=== PATIENT | female | born 2000 | race Two or more races ===

== ENCOUNTER 2019-10-24 02:25 | Inpatient (IN) | payer MEDICAID, OTHER ==
[~2019-10-24] VITALS: Ht 147.3 cm; Wt 54.4 kg
[2019-10-24 06:39] LABS: HEMATOCRIT. 35.4 % (36.0-48.0); HEMOGLOBIN. 12.3 g/dL (12.0-16.0); MEAN CORPUSCULAR HEMOGLOBIN 32.4 pg (28.0-32.0); MEAN CORPUSCULAR VOLUME 93.4 fL (81.0-99.0); MEAN PLATELET VOLUME 9.4 fl (7.4-10.4); PLATELET 259 x1000/uL (130-400); RED BLOOD CELL COUNT 3.79 mill/uL (4.2-5.4); RED CELL DISTRIBUTION WIDTH 13.6 % (11.6-14.6)
[2019-10-24 06:40] LABS: CHLORIDE 108 mEq/L (98-107)
[2019-10-24 07:04] LABS: B-HCG QUANTITATIVE 12114 mIU/mL (<3)
[2019-10-24 08:47] LABS: CLARITY URINE CLOUDY (CLEAR); COLOR URINE YELLOW (YELLOW); KETONES URINE TRACE (NEGATIVE); LEUKOCYTE ESTERASE URINE 1+ (NEGATIVE); NITRITE URINE NEGATIVE (NEGATIVE); OCCULT BLOOD URINE NEGATIVE (NEGATIVE); PH URINE 6.5 (4.5-8.0); PROTEIN URINE NEGATIVE (NEGATIVE); SPECIFIC GRAVITY URINE 1.025 (1.005-1.030)
[2019-10-24] MEDS ORDERED: CEFTRIAXONE 1 G PREMIX 50 ML IV ONE (09:00)
[2019-10-24 09:31] LABS: PLATELET ESTIMATE NORMAL
[2019-10-24] MEDS ORDERED: ACETAMINOPHEN 325MG TABLET PO PRN (14:00)
[2019-10-24] MEDS ORDERED: ACETAMINOPHEN 650MG/20.3ML UDC GT PRN (14:00)
[2019-10-24 16:00] VITALS: BP 96/59
[2019-10-24] MEDS: DEXT 5%/0.45% NACL 1000ML 1,000 ML IV SCH (16:53)
[2019-10-24 17:57] VITALS: BP 96/59
[2019-10-24 20:00] VITALS: BP 99/65
[2019-10-24 21:43] LABS: BASOPHILS % 0.4 % (0.0-2.0); HEMATOCRIT. 33.6 % (36.0-48.0); LYMPHOCYTES % 17.5 % (20.0-50.0); MEAN CORPUSCULAR HEMOGLOBIN 32.8 pg (28.0-32.0); MEAN PLATELET VOLUME 8.7 fl (7.4-10.4); MONOCYTES % 6.4 % (2.0-8.0); NEUTROPHILS % 74.7 % (40.0-76.0); PLATELET 259 x1000/uL (130-400); RED BLOOD CELL COUNT 3.66 mill/uL (4.2-5.4); RED CELL DISTRIBUTION WIDTH 13.7 % (11.6-14.6)
[2019-10-24 21:52] LABS: PARTIAL THROMBOPLASTIN TIME 25.4 sec (23.4-31.0); PROTHROMBIN TIME 10.3 sec (9.6-11.0)
[2019-10-25] VITALS: BP 99/61
[2019-10-25] MEDS: DEXT 5%/0.45% NACL 1000ML 1,000 ML IV SCH ×2 (02:41→12:30)
[2019-10-25 04:00] VITALS: BP 100/59
[2019-10-25 06:49] LABS: BASOPHILS % 0.4 % (0.0-2.0); EOSINOPHILS % 2.1 % (0.0-5.0); HEMATOCRIT. 32.7 % (36.0-48.0); HEMOGLOBIN. 11.5 g/dL (12.0-16.0); LYMPHOCYTES % 23.4 % (20.0-50.0); MEAN CORPUSCULAR VOLUME 93.3 fL (81.0-99.0); MEAN PLATELET VOLUME 8.7 fl (7.4-10.4); MONOCYTES % 5.4 % (2.0-8.0); NEUTROPHILS % 68.7 % (40.0-76.0); PLATELET 248 x1000/uL (130-400); RED CELL DISTRIBUTION WIDTH 13.5 % (11.6-14.6)
[2019-10-25 07:47] LABS: CHLORIDE 111 mEq/L (98-107)
[2019-10-25 08:00] VITALS: BP 99/42
[2019-10-25] MEDS ORDERED: PRENATAL VIT/FE FUMARATE/FA TABLET PO SCH ×2 (09:00)
[2019-10-25] MEDS ORDERED: KCL 20MEQ/100ML PREMIX 100 ML IV NR (11:00)
[2019-10-25 12:00] VITALS: BP 101/57
[2019-10-25 16:00] VITALS: BP 106/60
[2019-10-25 20:00] VITALS: BP 96/54
[2019-10-26] VITALS: BP 97/46
[2019-10-26 04:00] VITALS: BP 94/51
[2019-10-26 06:52] LABS: BASOPHILS % 0.4 % (0.0-2.0); EOSINOPHILS % 2.6 % (0.0-5.0); HEMATOCRIT. 31.5 % (36.0-48.0); HEMOGLOBIN. 11.3 g/dL (12.0-16.0); LYMPHOCYTES % 24.9 % (20.0-50.0); MEAN CORPUSCULAR HEMOGLOBIN 33.5 pg (28.0-32.0); MEAN CORPUSCULAR VOLUME 93.4 fL (81.0-99.0); MEAN PLATELET VOLUME 8.6 fl (7.4-10.4); MONOCYTES % 5.9 % (2.0-8.0); NEUTROPHILS % 66.2 % (40.0-76.0); PLATELET 235 x1000/uL (130-400); RED BLOOD CELL COUNT 3.37 mill/uL (4.2-5.4); RED CELL DISTRIBUTION WIDTH 13.6 % (11.6-14.6)
[2019-10-26 07:08] LABS: CHLORIDE 111 mEq/L (98-107)
[2019-10-26 08:00] VITALS: BP 93/43
[2019-10-26] MEDS: DEXT 5%/0.45% NACL 1000ML 1,000 ML IV SCH (08:51)
[2019-10-26 11:13] VITALS: BP 100/51
== END 2019-10-26 11:50 | disposition home or self-care (01) | DRG 566 ==
LOC: ER 02:25 → 6EST 10:36 → ENRESERV 16:57 → EDBEDREQ 17:13
PROVIDERS: ADMIT Internal Medicine; ATTEND Internal Medicine
DX: O99.612 Diseases of the digestive system complicating pregnancy, second trimester (principal); K80.20 Calculus of gallbladder without cholecystitis without obstruction; D72.829 Elevated white blood cell count, unspecified; O99.282 Endocrine, nutritional and metabolic diseases complicating pregnancy, second trimester; E87.6 Hypokalemia; O23.42 Unspecified infection of urinary tract in pregnancy, second trimester; O99.112 Other diseases of the blood and blood-forming organs and certain disorders involving the immune mechanism complicating pregnancy, second trimester; E78.5 Hyperlipidemia, unspecified; Z3A.17 17 weeks gestation of pregnancy
CPT/HCPCS: 36415; 74181; 76700; 76805; 80053; 80061; 81003; 83036; 84702; 85025; 86592; 86703; 86762; 86850; 86900; 87340; 99285; J0696; J3480

== ENCOUNTER 2019-11-17 01:50 | Emergency (ER) | payer MEDICAID ==
[~2019-11-17] VITALS: Ht 147.3 cm; Wt 56.0 kg
[2019-11-17] MEDS ORDERED: SODIUM CHLORIDE 0.9% 1,000 ML IV ONE (02:42)
[2019-11-17] MEDS ORDERED: MAGNESIUM/ALUMINUM HYDROXIDE/SIMETHICONE 30ML UDC PO STA (02:42)
[2019-11-17] MEDS ORDERED: ONDANSETRON HCL 4MG/2ML INJ IV STA (02:42)
[2019-11-17] MEDS ORDERED: BUTORPHANOL TARTRATE 2 MG/ML VIAL IM ONE (02:45)
[2019-11-17 02:47] LABS: CLARITY URINE CLEAR (CLEAR); COLOR URINE YELLOW (YELLOW); KETONES URINE NEGATIVE (NEGATIVE); LEUKOCYTE ESTERASE URINE 1+ (NEGATIVE); NITRITE URINE NEGATIVE (NEGATIVE); OCCULT BLOOD URINE NEGATIVE (NEGATIVE); PH URINE 7.5 (4.5-8.0); PROTEIN URINE NEGATIVE (NEGATIVE)
[2019-11-17 03:19] LABS: BASOPHILS % 0.3 % (0.0-2.0); EOSINOPHILS % 1.7 % (0.0-5.0); HEMATOCRIT. 31.2 % (36.0-48.0); HEMOGLOBIN. 10.6 g/dL (12.0-16.0); LYMPHOCYTES % 22.9 % (20.0-50.0); MEAN CORPUSCULAR HEMOGLOBIN 31.6 pg (28.0-32.0); MEAN PLATELET VOLUME 8.5 fl (7.4-10.4); MONOCYTES % 6.9 % (2.0-8.0); NEUTROPHILS % 68.2 % (40.0-76.0); PLATELET 222 x1000/uL (130-400); RED BLOOD CELL COUNT 3.35 mill/uL (4.2-5.4); RED CELL DISTRIBUTION WIDTH 13.3 % (11.6-14.6)
[2019-11-17 03:26] LABS: CHLORIDE 106 mEq/L (98-107)
[2019-11-17 04:55] VITALS: BP 101/58
== END 2019-11-17 04:55 | disposition home or self-care (01) ==
LOC: ER 01:50
DX: K80.80 Other cholelithiasis without obstruction (principal)
CPT/HCPCS: 36415; 80053; 81003; 81025; 83690; 85025; 93005; 96361; 96372; 96374; 99284; J0595; J2405; J7030

== ENCOUNTER 2020-04-27 15:21 | Emergency (ER) | payer MEDICAID ==
[~2020-04-27] VITALS: Ht 147.3 cm; Wt 54.0 kg
[2020-04-27 15:34] VITALS: BP 97/64
[2020-04-27] MEDS ORDERED: ACETAMINOPHEN 325MG TABLET PO ONE (17:15)
[2020-04-27] MEDS ORDERED: ONDANSETRON 4MG ODT PO ONE (17:15)
[2020-04-27] MEDS ORDERED: MORPHINE SULFATE 4 MG/ML CPJ (NOT FOR IM USE) IV ONE (17:15)
[2020-04-27 17:56] LABS: CLARITY URINE CLEAR (CLEAR); COLOR URINE YELLOW (YELLOW); KETONES URINE NEGATIVE (NEGATIVE); LEUKOCYTE ESTERASE URINE TRACE (NEGATIVE); NITRITE URINE NEGATIVE (NEGATIVE); OCCULT BLOOD URINE 1+ (NEGATIVE); PH URINE 5.5 (4.5-8.0); PROTEIN URINE NEGATIVE (NEGATIVE); SPECIFIC GRAVITY URINE 1.008 (1.005-1.030); UROBILINOGEN URINE 0.2 E.U./dL (0.2-1.0)
[2020-04-27] MEDS ORDERED: HYDROCODONE/ACETAMINOPHEN 5/325MG TABLET PO ONE (18:00)
[2020-04-27] MEDS ORDERED: ONDANSETRON 4MG ODT PO PRN (18:00)
== END 2020-04-27 18:19 | disposition left against medical advice (07) ==
LOC: ER 15:21
DX: N64.4 Mastodynia (principal); N61.0 Mastitis without abscess; R10.11 Right upper quadrant pain; Z90.49 Acquired absence of other specified parts of digestive tract
CPT/HCPCS: 81003; 93005; 99284